=== PATIENT | male | born 1970 | race Caucasian/White ===

== ENCOUNTER → 2016-04-14 | Outpatient (CLI) | payer BC ==
[~2016-04-14] MED LIST: KLONOPIN1 MG ORAL; NORCO 5-325 TA1 EACH ORAL
--- NOTE | 2016-04-18 10:32 | Diagnostic Imaging Report ---
Indication: Throughout the Technique: Patient ingested effervescent granules, oral thick and thin liquid barium, both upright and prone under fluoroscopic guidance, and rapid sequence spot images and overhead films were obtained. Total fluoroscopy time 1.7 minutes. Total dose area product 475 dGycm2 Comparison: None Findings: Normal esophageal motility. No evidence of stricture, ulcerations, or filling defect. However, imaging in the upright lateral projection demonstrate laryngeal penetration and trace josué aspiration of thick liquid barium. Prone imaging demonstrates consistent supraglottic laryngeal penetration. There is suggestion of a minimal sliding-type hiatal hernia. No gastroesophageal reflux was observed fluoroscopically. Impression: Positive for constant laryngeal penetration and inconstant trace aspiration of contrast. Recommend speech pathology evaluation Equivocal minimal hiatal hernia with patient in the prone position. No gastroesophageal reflux
== END | disposition home or self-care (01) ==
LOC: RAD 08:49
DX: K21.9 Gastro-esophageal reflux disease without esophagitis (principal); R07.0 Pain in throat
CPT/HCPCS: 74220

== ENCOUNTER 2017-08-14 11:52 | Emergency (ER) | payer BC ==
[~2017-08-14] VITALS: Ht 170.2 cm; Wt 65.8 kg
[2017-08-14 12:23] VITALS: BP 119/62
[2017-08-14] MEDS ORDERED: Methocarbamol 500mg tab ORAL ONE (12:30)
--- NOTE | 2017-08-14 12:31 | Emergency Room Report ---
History of Present Illness General Chief Complaint: Back Injury Source: Patient Present Illness HPI 46-year-old male patient presents to ER complaining of right scapular pain for the past few days. Patient reports history of pain in the area, reports that he injured it a few years ago and has had multiple workups with his doctor since that time, reports he has had MRIs done. Patient reports that he does not know the final diagnosis or cause pain. Patient reports that his playing with his friend's child a few days ago and began to experience pain in his right scapula again. Patient reports that he has been taking ibuprofen 800 mg since that time. Reports last dosage earlier today. Patient reports no radiation of pain down his arm or spine. Patient denies fever, chest pain shortness breath, abdominal pain. Patient reports she has appointment with his primary care provider on Tuesday, requesting pain medication to last him until his appointment. Allergies: Coded Allergies: No Known Allergies (Unverified , 12/26/15) Patient History Past Medical History: see triage record Reviewed Nursing Documentation: PMH: Agreed; PSxH: Agreed Nursing Documentation-PMH Past Medical History: No Stated History Review of Systems All Other Systems: negative except mentioned in HPI Physical Exam Vital Signs Date Time Temp Pulse Resp B/P (MAP) Pulse Ox O2 Delivery O2 Flow Rate FiO2 08/14/17 12:01 97.4 74 20 115/63 97 Room Air 97.3 Sp02 EP Interpretation: reviewed, normal General Appearance: well appearing, no apparent distress, alert, GCS 15, non- toxic Head: normocephalic, atraumatic Eyes: bilateral eye normal inspection, bilateral eye PERRL Respiratory: lungs clear, normal breath sounds, no rhonchi, no respiratory distress, no accessory muscle use, no wheezing, speaking full sentences Cardiovascular #1: regular rate, rhythm, no edema Cardiovascular #2: 2+ radial (R), 2+ radial (L) Musculoskeletal: back normal, digits/nails normal, gait/station normal, normal range of motion - passive, tender - right scapula Neurologic: alert, oriented x3, responsive, motor strength/tone normal, sensory intact Psychiatric: mood/affect normal Skin: no rash Medical Decision Making PA Attestation Dr. Matamoros is my supervising Physician whom patient management has been discussed with. Diagnostic Impression: Primary Impression: Pain in scapula ER Course Pt. presents to the ED c/o right scapular pain. Ddx considered but are not limited to sprain, strain, contusion. Vital signs: are WNL, pt. is afebrile Ordered pain medication. ER COURSE physical exam benign, full passive range of motion, mild tenderness to palpation , no swelling, erythema, ecchymosis, scapular winging. Provided with muscle relaxant, lidocaine patch, and pain medication in ER. patient declined x-ray at this time, states that he will follow-up with his primary care scheduled appointment on Tuesday and schedule an MRI. Patient instructed on RICE method: rest, ice, compression, elevation. Followup with primary care provider for medical clearance to return to activities. Discuss referral to ortho/pain management/PT as needed. Discuss further imaging with MRI/CT as needed. CURES report shows multiple prescription provided by multiple providers over the past few months. Will not provide Rx for opioid medication at this time. Instructed patient to follow up with primary care provider for further pain medication. reports understanding and agreement with treatment plan. patient reports some relief of pain with medication and treatment in ER. DISCHARGE: -Rx provided for Tylenol for pain symptoms. At this time pt. is stable for d/c to home. Patient is resting comfortably, in no acute distress, nontoxic appearing, talking without difficulty. Will provide printed patient care instructions, and any necessary prescriptions. Patient instructed to follow with primary care provider in 3 - 5 days and to request further orthopedic follow-up. Care plan and follow up instructions have been discussed with the patient prior to discharge. Take medications as directed. Patient questions asked and answered. Patient reports understanding and agreement to treatment plan. ER precautions given, patient instructed to return to ER immediately for any new or worsening of symptoms. - Please note that this Emergency Department Report was dictated using [employer] technology software, occasionally this can lead to erroneous entry secondary to interpretation by the dictation equipment. Last Vital Signs Date Time Temp Pulse Resp B/P (MAP) Pulse Ox O2 Delivery O2 Flow Rate FiO2 08/14/17 12:01 97.4 74 20 115/63 97 Room Air 97.3 Disposition: HOME, SELF-CARE Condition: Stable Scripts Acetaminophen* (TYLENOL EXTRA STRENGTH*) 500 Mg Tablet 500 MG ORAL Q8H PRN for Prn Headache/Temp > 101, #30 TAB 0 Refills Prov: Eddi Perales 08/14/17 Patient Instructions: Scapular Winging With [facility] Additional Instructions: Patient instructed to follow up with primary care provider and discuss further referral to orthopedics. Patient instructed on RICE method: rest, ice, compression, elevation. Patient instructed to WBAT. Take Ibuprofen as needed for pain symptoms. Patient questions asked and answered. ER precautions given, patient instructed to return to ER immediately for any new or worsening of symptoms. Eddi Perales August 14, 2017 12:31
[2017-08-14] MEDS ORDERED: TYLENOL EXTRA500 MG ORAL (12:33)
[2017-08-14 12:44] VITALS: BP 119/62
[2017-08-14] MEDS ORDERED: Norco 5mg/325mg tab ORAL ONE (12:45)
== END 2017-08-14 12:44 | disposition home or self-care (01) ==
LOC: EMR 12:15
DX: M25.512 Pain in left shoulder (principal)
CPT/HCPCS: 99283